=== PATIENT | female | born 1950 | race Caucasian/White ===

== ENCOUNTER 2020-11-26 17:58 | Inpatient (IN) | payer MEDICARE, MEDICAID ==
[~2020-11-26] VITALS: Ht 160 cm; Wt 84.1 kg
--- NOTE | 2020-11-26 18:22 | NUR ---
CALLED POISON CONTROL. SUGGESTED SUPPORTIVE CARE AND 4 HOUR OBSERVATION. NO FLUMAZEPIL. SUPPORTIVE CARE ONLY. NO OTHER ADIVSE GIVEN
--- NOTE | 2020-11-26 18:43 | NUR ---
Son Erwin Gustafson called at 1840 and left his number for us in case we need family for info. [phone].
[2020-11-26 19:09] LABS: HEMOGLOBIN 13.1 g/dl (12.0-16.0); MEAN CORPUSCULAR HEMOGLOBIN 31.4 PG (27.0-31.0); MEAN CORPUSCULAR HGB CONC 33.2 g/dL (33.0-36.5)
[2020-11-26 19:12] LABS: BASOPHILS # (AUTO) 0.1 X10'3 (0-0.2); BASOPHILS % (AUTO) 0.5 % (0-1); EOSINOPHILS # (AUTO) 0.1 X10'3 (0-0.9); EOSINOPHILS % (AUTO) 0.7 % (0-6); HEMATOCRIT 39.4 % (35.0-45.0); LYMPHOCYTES # (AUTO) 2.2 X10'3 (1.1-4.8); LYMPHOCYTES % (AUTO) 20.2 % (21-51); MEAN CORPUSCULAR VOLUME 94.6 FL (78-98); MEAN PLATELET VOLUME 9.4 FL (7.4-10.4); MONOCYTES # (AUTO) 0.6 X10'3 (0-0.9); MONOCYTES % (AUTO) 5.4 % (2-12); NEUTROPHILS # (AUTO) 7.9 X10'3 (1.8-7.7); NEUTROPHILS % (AUTO) 73.2 % (42-75); PLATELET COUNT 346 X10'3 (140-440); RED BLOOD COUNT 4.17 X10'6 (4.20-5.60); RED CELL DISTRIBUTION WIDTH 13.2 % (11.5-14.5); WHITE BLOOD COUNT 10.7 X10'3 (4.5-11.0)
[2020-11-26 19:30] LABS: ALANINE AMINOTRANSFERASE 16 U/L (12-78); ALBUMIN 4.2 G/DL (3.4-5.0); ALBUMIN/GLOBULIN RATIO 1.6 (1.1-1.5); ALKALINE PHOSPHATASE 63 IU/L (46-116); ANION GAP 12 (8-16); ASPARTATE AMINO TRANSFERASE 15 U/L (10-37); BILIRUBIN,TOTAL 0.4 MG/DL (0.1-1.0); BLOOD UREA NITROGEN 28 MG/DL (7-18); BUN/CREATININE RATIO 22.6 (6.6-38.0); CALCIUM 9.3 MG/DL (8.5-10.1); CHLORIDE 113 MMOL/L (99-107); CREATININE 1.24 MG/DL (0.40-0.90); GLUCOSE 120 MG/DL (70-104); POTASSIUM 3.2 MMOL/L (3.5-5.1); SODIUM 150 MMOL/L (135-145); TOTAL CARBON DIOXIDE 24.7 MMOL/L (24-32); TOTAL PROTEIN 6.9 G/DL (6.4-8.2); eGFR 43 ML/MIN
[2020-11-26 19:32] LABS: ETHANOL < 0.010 GM/DL (0.0-0.010)
--- NOTE | 2020-11-26 19:42 | NUR ---
UA not needed at this time per MD. Son called to check on pt condition
[2020-11-26 19:57] LABS: D-DIMER 0.31 MG/L FEU (0-0.50); PARTIAL THROMBOPLASTIN TIME 24 SECONDS (22-32)
[2020-11-26 19:58] LABS: C-REACTIVE PROTEIN 0.73 MG/DL (0.0-0.5); MAGNESIUM 1.6 MG/DL (1.5-2.4)
[2020-11-26] MEDS ORDERED: normal saline 1000ML IV soln IVB ONE (20:05)
[2020-11-26 21:47] LABS: ACETAMINOPHEN < 2.0 UG/ML (10-30)
--- NOTE | 2020-11-26 21:52 | NUR ---
Contacted by poison control who recommended an aspirin and acetaminophen levels. Poison control updated on condition.
--- NOTE | 2020-11-26 21:53 | NUR ---
Patient disoriented and getting out of bed. Pt is redirectable, but quickly forgets and tries to leave her bed. MD notified.
[2020-11-26] MEDS ORDERED: ondansetron/PF 4mg/2ml inj IV ONE (22:00)
[2020-11-26 23:04] LABS: CLARITY,URINE SLIGHTLY CLOUDY (Clear); COLOR,URINE YELLOW (Yellow); GLUCOSE, URINE NEGATIVE (Neg); KETONES,URINE NEGATIVE (Neg); LEUKOCYTE ESTERASE ,URINE NEGATIVE (Neg); NITRITES, URINE NEGATIVE (Neg); OCCULT BLOOD,URINE MODERATE (Neg); PROTEIN,URINE NEGATIVE (Neg); UA COLLECTION TYPE STRAIGHT CATH; UROBILINOGEN,URINE 0.2 E.U/dL (0.2-1.0)
[2020-11-26 23:09] LABS: MUCUS STRANDS FEW /LPF (Neg); SQUAMOUS EPITHELIAL CELL,UR FEW /LPF (FEW)
[2020-11-26 23:10] LABS: HYALINE CASTS 0-3 /LPF (NEGATIVE)
[2020-11-26 23:12] LABS: BACTERIA,URINE NONE SEEN /HPF (Neg); WBC,URINE 0-4 /HPF (0-4)
[2020-11-26 23:18] LABS: URINE AMPHETAMINE SCREEN NEGATIVE (Neg); URINE BARBITUATE SCREEN NEGATIVE (Neg); URINE BENZODIAZEPINES SCREEN POSITIVE (Neg); URINE CANNABINOID SCREEN POSITIVE (Neg); URINE COCAINE SCREEN NEGATIVE (Neg); URINE METHADONE SCREEN NEGATIVE (Neg); URINE OPIATE SCREEN NEGATIVE (Neg); URINE PHENCYCLIDINE SCREEN NEGATIVE (Neg)
[2020-11-26] MEDS ORDERED: HYDROcodone/acetaminophen 5mg/325mg tablet PO PRN (23:40)
[2020-11-26] MEDS ORDERED: mag hydrox/Alum hydrox/simeth 30ml oral suspension PO PRN (23:40)
[2020-11-26] MEDS ORDERED: ondansetron/PF 4mg/2ml inj IV PRN (23:40)
[2020-11-26] MEDS ORDERED: normal saline 1000ml 1,000 ML IV SCH (23:40)
[2020-11-26] MEDS ORDERED: acetaminophen 325mg tablet PO PRN ×2 (23:40)
[2020-11-26] MEDS ORDERED: morphine 2 MG/ML inj. syringe IV PRN ×2 (23:40)
[2020-11-26] MEDS ORDERED: magnesium hydroxide 30ml (MOM) UD suspension PO PRN (23:40)
--- NOTE | 2020-11-26 23:41 | NUR ---
relieving RN for lunch, pt is sleeping, easily arouseable, GCS 13, pt is oriented to person only, cannot follow simple commands, pleasantly confused, unable to ambulate. Dr Gottlieb aware
[2020-11-27] MEDS: amLODIPine 5mg tablet PO SCH (03:05)
--- NOTE | 2020-11-27 07:30 | NUR ---
Pt remains confused and thinks the month is May, unable to state current year and states she is in a hospital in [facility].
[2020-11-27] MEDS: docusate sod 100mg capsule PO SCH (08:00)
[2020-11-27 08:07] LABS: BASOPHILS # (AUTO) 0.1 X10'3 (0-0.2); BASOPHILS % (AUTO) 0.5 % (0-1); EOSINOPHILS % (AUTO) 0.3 % (0-6); HEMATOCRIT 40.8 % (35.0-45.0); HEMOGLOBIN 13.5 g/dl (12.0-16.0); LYMPHOCYTES # (AUTO) 2.4 X10'3 (1.1-4.8); LYMPHOCYTES % (AUTO) 19.8 % (21-51); MEAN CORPUSCULAR HEMOGLOBIN 31.2 PG (27.0-31.0); MEAN CORPUSCULAR HGB CONC 33.2 g/dL (33.0-36.5); MEAN PLATELET VOLUME 8.7 FL (7.4-10.4); MONOCYTES # (AUTO) 0.7 X10'3 (0-0.9); MONOCYTES % (AUTO) 5.9 % (2-12); NEUTROPHILS # (AUTO) 8.8 X10'3 (1.8-7.7); NEUTROPHILS % (AUTO) 73.5 % (42-75); PLATELET COUNT 368 X10'3 (140-440); RED BLOOD COUNT 4.34 X10'6 (4.20-5.60); RED CELL DISTRIBUTION WIDTH 13.2 % (11.5-14.5)
[2020-11-27] MEDS ORDERED: magnesium Cl slow-release 64mg tablet PO PRN (09:25)
[2020-11-27] MEDS ORDERED: potassium Cl 40MEQ/1/2NS 520ml 520 ML IV PRN (09:25)
[2020-11-27] MEDS ORDERED: magnesium 4gm in 100ml NS 100 ML IV PRN (09:25)
[2020-11-27] MEDS ORDERED: potassium Cl 20 mEq SR tablet PO PRN ×2 (09:25)
[2020-11-27] MEDS ORDERED: PERFLUTREN PROTEIN-A MICROSPHR (Optison) 0.22 MG/ML 3ML VIAL IV ONE (09:35)
--- NOTE | 2020-11-27 09:49 | NUR ---
Pts son Sundar Gandara called and was updated on pt status. Son reports he would come and sit with mother if allowed, pt reports that he received his second covid vaccine on 11/24/20. Pts phone #:
[2020-11-27 10:02] LABS: ALANINE AMINOTRANSFERASE 16 U/L (12-78); ALBUMIN/GLOBULIN RATIO 1.3 (1.1-1.5); ALKALINE PHOSPHATASE 63 IU/L (46-116); ANION GAP 14 (8-16); ASPARTATE AMINO TRANSFERASE 18 U/L (10-37); BILIRUBIN,TOTAL 0.4 MG/DL (0.1-1.0); BLOOD UREA NITROGEN 21 MG/DL (7-18); BUN/CREATININE RATIO 24.4 (6.6-38.0); CALCIUM 8.7 MG/DL (8.5-10.1); CHLORIDE 112 MMOL/L (99-107); CREATININE 0.86 MG/DL (0.40-0.90); GLUCOSE 109 MG/DL (70-104); SODIUM 149 MMOL/L (135-145); TOTAL CARBON DIOXIDE 22.9 MMOL/L (24-32); TOTAL PROTEIN 7.1 G/DL (6.4-8.2); eGFR 66 ML/MIN
[2020-11-27] MEDS ORDERED: UNABLE TO OBTAIN (17:57)
[2020-11-27] MEDS: dextrose 5%-water 1,000 ML IV SCH ×3 (19:35→23:30)
[2020-11-27] MEDS: K and/or MAG REPLACEMENT MC SCH (22:30)
[2020-11-28] MEDS: docusate sod 100mg capsule PO SCH ×2 (00:35→07:57)
--- NOTE | 2020-11-28 02:00 | NUR ---
Received report from Krystle WALTON in the ER. Pt arrived on a hospital bed with her clothes in a pt belongings bag. D5W running at 100 mls/hr, on room air with no signs of distress. Will continue to monitor.
[2020-11-28 02:30] VITALS: BP 120/68
--- NOTE | 2020-11-28 03:03 | NUR ---
Amlodipine due at 2320 while patient was still in ER, patient arrived on the unit at 0230. Called pharmacy and was advised to note as "missed dose" since it is due again at 0800. Patient BP currently 120/68.
[2020-11-28] MEDS: dextrose 5%-water 1,000 ML IV SCH ×2 (05:21→14:17)
[2020-11-28 06:00] VITALS: BP 153/69
--- NOTE | 2020-11-28 06:00 | NUR ---
Patient in room PCU 3027. I have received report from Ramandeep WALTON and had the opportunity to ask questions and assume patient care.
--- NOTE | 2020-11-28 06:21 | NUR ---
Problems reprioritized. Patient report given, questions answered & plan of care reviewed with Diana WALTON.
--- NOTE | 2020-11-28 06:23 | NUR ---
Problems reprioritized. Patient report given, questions answered & plan of care reviewed with ANTON Ortiz.
[2020-11-28 06:30] LABS: BASOPHILS # (AUTO) 0.1 X10'3 (0-0.2); BASOPHILS % (AUTO) 0.5 % (0-1); EOSINOPHILS % (AUTO) 0.1 % (0-6); HEMATOCRIT 41.6 % (35.0-45.0); HEMOGLOBIN 13.8 g/dl (12.0-16.0); LYMPHOCYTES # (AUTO) 2.1 X10'3 (1.1-4.8); LYMPHOCYTES % (AUTO) 19.9 % (21-51); MEAN CORPUSCULAR HEMOGLOBIN 31.1 PG (27.0-31.0); MEAN CORPUSCULAR HGB CONC 33.2 g/dL (33.0-36.5); MEAN CORPUSCULAR VOLUME 93.7 FL (78-98); MONOCYTES # (AUTO) 0.5 X10'3 (0-0.9); MONOCYTES % (AUTO) 4.9 % (2-12); NEUTROPHILS % (AUTO) 74.6 % (42-75); PLATELET COUNT 383 X10'3 (140-440); RED BLOOD COUNT 4.44 X10'6 (4.20-5.60); RED CELL DISTRIBUTION WIDTH 13.2 % (11.5-14.5); WHITE BLOOD COUNT 10.7 X10'3 (4.5-11.0)
[2020-11-28 07:04] LABS: ALANINE AMINOTRANSFERASE 13 U/L (12-78); ALBUMIN 4.3 G/DL (3.4-5.0); ALBUMIN/GLOBULIN RATIO 1.4 (1.1-1.5); ALKALINE PHOSPHATASE 66 IU/L (46-116); ANION GAP 15 (8-16); ASPARTATE AMINO TRANSFERASE 16 U/L (10-37); BILIRUBIN,TOTAL 0.5 MG/DL (0.1-1.0); BLOOD UREA NITROGEN 11 MG/DL (7-18); BUN/CREATININE RATIO 14.9 (6.6-38.0); CALCIUM 9.1 MG/DL (8.5-10.1); CHLORIDE 107 MMOL/L (99-107); CREATININE 0.74 MG/DL (0.40-0.90); GLUCOSE 125 MG/DL (70-104); MAGNESIUM 1.8 MG/DL (1.5-2.4); PHOSPHORUS 2.9 MG/DL (2.3-4.5); POTASSIUM 3.3 MMOL/L (3.5-5.1); SODIUM 144 MMOL/L (135-145); TOTAL CARBON DIOXIDE 22.2 MMOL/L (24-32); TOTAL PROTEIN 7.4 G/DL (6.4-8.2); eGFR 78 ML/MIN
[2020-11-28] MEDS ORDERED: heparin, porcine 5000 units/ml vial SQ SCH ×2 (08:00)
[2020-11-28] MEDS: amLODIPine 5mg tablet PO SCH (08:02)
[2020-11-28] MEDS: K and/or MAG REPLACEMENT MC SCH (08:04)
[2020-11-28] MEDS ORDERED: levoTHYROXINE 25mcg tablet PO SCH (10:00)
[2020-11-28 11:00] VITALS: BP 171/73
--- NOTE | 2020-11-28 13:03 | NUR ---
Paged Dr. Dunn regarding patient being cleared by poison control. PAGER ID: [phone] MESSAGE: [phone]. FAIZAN SANCHEZ. PATIENT CLEARED BY POISON CONTROL. THANK YOU. MITCHELL WALTON X [phone]
[2020-11-28] MEDS ORDERED: LEVO25TA7 PO (14:41)
[2020-11-28] MEDS ORDERED: NOR5T PO (14:41)
--- NOTE | 2020-11-28 16:45 | NUR ---
Patient educated on worsening symptoms, follow-up care, and medications. New prescriptions sent to [facility] in [place]. Two IV's removed and canula's intact. I wheeled patient down to daughter in law.
== END 2020-11-28 16:20 | disposition home or self-care (01) | DRG 917 ==
LOC: ER 17:59 → OBSVTOIN 23:45 → ED HOLD 23:45 → PCU 3S 11-28 02:00
PROVIDERS: ADMIT Internal Medicine; ATTEND Family Medicine
PROC: B3251ZZ Computerized Tomography (CT Scan) of Bilateral Common Carotid Arteries using Low Osmolar Contrast (ICD-10-PCS; principal; 2020-11-27)
PROC: B32G1ZZ Computerized Tomography (CT Scan) of Bilateral Vertebral Arteries using Low Osmolar Contrast (ICD-10-PCS; 2020-11-27)
PROC: B32R1ZZ Computerized Tomography (CT Scan) of Intracranial Arteries using Low Osmolar Contrast (ICD-10-PCS; 2020-11-27)
PROC: B3281ZZ Computerized Tomography (CT Scan) of Bilateral Internal Carotid Arteries using Low Osmolar Contrast (ICD-10-PCS; 2020-11-27)
DX: T42.8X1A Poisoning by antiparkinsonism drugs and other central muscle-tone depressants, accidental (unintentional), initial encounter (principal); G92.9 Unspecified toxic encephalopathy; E87.0 Hyperosmolality and hypernatremia; I10 Essential (primary) hypertension; E86.0 Dehydration; Y92.89 Other specified places as the place of occurrence of the external cause
CPT/HCPCS: 36415; 70450; 70496; 70498; 71045; 80053; 80305; 80320; 80329; 81001; 83735; 83880; 84100; 84145; 84443; 85025; 85379; 85610; 85730; 86140; 87081; 93005; 93306; 99285; G0378; J1644; J2405; J7030; J7070